=== PATIENT | female | born 1980 | race Caucasian/White ===

== ENCOUNTER 2022-02-26 09:38 | Day surgery (SDC) | payer BC ==
[2022-02-21 16:30] LABS: Hemoglobin 12.7 g/dL (12.0-15.5); Mean Corpuscular HGB CONC 33.5 g/dL (32.0-36.0); Mean Corpuscular Hemoglobin 32.2 pg (27.0-33.0); Mean Corpuscular Volume 95.9 fl (81.6-98.3); Mean Platelet Volume 9.5 fl (7.4-10.4); Platelet Count 300 10x3/uL (150-450); RBC Distribution Width 12.2 % (11.5-14.5); Red Blood Cell (RBC) Count 3.95 10x6/uL (3.90-5.03); White Blood Cell (WBC) Count 6.4 10x3/uL (3.5-10.5)
[2022-02-21 17:05] LABS: BHCG - Serum Negative (NEGATIVE); Pregs Control Background? CLEAR/WHITE (CLR/WHITE); Pregs Control Bar Appear? YES (CONTROL BAR)
[2022-02-22 12:26] VITALS: BMI 25.5
[2022-02-26] MEDS ORDERED: CeleCOXIB 100 MG CAP ONE (10:46)
[2022-02-26] MEDS ORDERED: Lidocaine 1% MPF 2 ML VIAL ONE (10:52)
[2022-02-26] MEDS ORDERED: Promethazine HCl 25 MG/ML VIAL ONE (12:31)
[2022-02-26] MEDS ORDERED: Lidocaine 1% PF 5 ML VIAL ONE (12:36)
[2022-02-26] MEDS ORDERED: PROPOFOL 20 ML ONE (12:36)
[2022-02-26] MEDS ORDERED: Fentanyl 100 MCG/2 ML VIAL ONE (12:36)
[2022-02-26] MEDS ORDERED: Sodium Chloride 0.9% 20 ML ONE (12:38)
[2022-02-26] MEDS ORDERED: Sterile Water 20 ML ONE (12:38)
[2022-02-26] MEDS ORDERED: Midazolam HCl 2 mg/2 ml Vial ONE (12:38)
[2022-02-26] MEDS ORDERED: CEFAZOLIN 2 GM VIAL ONE (12:40)
[2022-02-26] MEDS ORDERED: Ondansetron PF 4 MG/2 ML Vial ONE (12:56)
[2022-02-26] MEDS ORDERED: Dexamethasone 20 MG/5 ML VIAL ONE (12:56)
[2022-02-26] MEDS ORDERED: Ketorolac Tromethamine 30 MG/ML VIAL ONE (13:16)
== END 2022-02-26 15:15 | disposition home or self-care (01) ==
LOC: CSHSDC 09:38
PROVIDERS: ATTEND Obstetrics & Gynecology
PROC: 0UDB8ZX Extraction of Endometrium, Via Natural or Artificial Opening Endoscopic, Diagnostic (ICD-10-PCS; principal; 2022-02-26)
PROC: 0U5B8ZZ Destruction of Endometrium, Via Natural or Artificial Opening Endoscopic (ICD-10-PCS; principal; 2022-02-26)
DX: N92.0 Excessive and frequent menstruation with regular cycle (principal); Z79.899 Other long term (current) drug therapy; Z98.890 Other specified postprocedural states
CPT/HCPCS: 84703; 85027; 86850; 86900; 86901; 88305; J0690; J1100; J1885; J2250; J2405; J2550; J2704; J3010